=== PATIENT | male | born 1960 | race Two or more races ===

== ENCOUNTER 2019-07-15 09:45 | Emergency (ER) | payer SELFPAY ==
[~2019-07-15] VITALS: Ht 167.6 cm; Wt 89.4 kg
[2019-07-15 10:04] VITALS: BP 158/107
[2019-07-15] MEDS ORDERED: ACETAMINOPHEN 325 MG TABLET PO ONE (11:00)
[2019-07-15] MEDS ORDERED: IBUPROFEN 600 MG TABLET PO ONE ×2 (11:00→11:23)
[2019-07-15] MEDS ORDERED: ACETAMINOPHEN 325 MG TABLET ONE (11:22)
== END 2019-07-15 11:39 | disposition home or self-care (01) ==
LOC: ER 09:45
DX: M23.8X2 Other internal derangements of left knee (principal); V03.99XA Pedestrian with other conveyance injured in collision with car, pick-up truck or van, unspecified whether traffic or nontraffic accident, initial encounter; Y93.01 Activity, walking, marching and hiking; Y92.89 Other specified places as the place of occurrence of the external cause; Y99.8 Other external cause status
CPT/HCPCS: 73564-TC